=== PATIENT | male | born 1955 | race Caucasian/White ===

== ENCOUNTER 2017-04-18 11:34 | Inpatient (IN) | payer OTHER ==
[~2017-04-18] VITALS: Ht 185.4 cm; Wt 107.0 kg
--- NOTE | ~2017-04-18 | O ---
[facility] [place] [address] OPERATIVE REPORT Name: EMELINA ALBERTO Room #: 426-P ADM IN M.R.#: [id number] Admission: 04/18/17 Attend Phys: Haseeb Banks Discharge: Date of : 57 Report #: [id number] THIS REPORT FOR: //name// CC: FABI physician/PCP Haseeb Banks DATE OF SERVICE: 04/20/2017 PREOPERATIVE DIAGNOSIS: Bilateral quadriceps tendon tear. POSTOPERATIVE DIAGNOSIS: Bilateral quadriceps tendon tear. PROCEDURE: Bilateral quadriceps tendon repair. SURGEON: Shaun Gore MD ANESTHESIA: General. ESTIMATED BLOOD LOSS: 50 mL. DRAINS: No drains. TOURNIQUET TIME: No tourniquets. FRYER OPERATOR: SELWYN Veliz ANESTHESIA: General. DESCRIPTION OF PROCEDURE: The patient brought to the operating room where he was placed under general anesthesia. Once under adequate general anesthesia, bilateral lower extremities were prepped and draped in sterile manner. The left lower extremity was attended to first. A 14 cm incision overlying the patella, extending proximally over the quadriceps tendon tear was then made to dissect down through the soft tissue, the quadriceps tendon tear which the tendon itself was then identified and hematoma was evacuated and the tendon was then subsequently suture repaired utilizing #5 FiberWire suture and a 4 strand Krackow type stitch. The drill holes were then placed through the patella with 3.5 drill and 3 drill holes were placed. Two of the sutures were placed through the central and one each laterally. These were then transferred through and subsequently sutured down repairing the tendon back to the patella. Once complete, the wound was irrigated copiously and #1 Vicryl was utilized to repair the rent in the medial and lateral joint capsules. The wound was then irrigated copiously once again and closed with 2-0 Vicryl in subcutaneous tissues and devonte for the skin. We then proceeded to the right lower extremity. Similarly, a 14 cm incision over the right patella and quadriceps tendon was made. This was dissected down through the soft tissue to the tear and hematoma [address] [address] OPERATIVE REPORT Name: ALBERTOEMELINA ANTOINE Room #: 426-P ADM IN M.R.#: [id number] Admission: 04/18/17 Attend Phys: Haseeb Banks Discharge: Date of : 57 Report #: [id number] was evacuated. A 4 strand Krackow type stitch was then placed. Two strands then placed through a drill hole in the patella centrally and one strand each medially and laterally respectively. This was then suture repaired and brought down to the patella with the suture. Excellent repair was achieved. The wound was irrigated copiously. A #1 Vicryl was used to repair the joint capsule both medially and laterally. The wound was irrigated copiously and closed with 2-0 Vicryl in subcutaneous tissues and devonte were used for the skin. Wounds were dressed with Xeroform, 4 x 4s, and sterile soft compressive dressing was placed. Knee immobilizers were then placed. There were no complications from the procedure. The patient tolerated the procedure well and went to the recovery room without incident. <ELECTRONICALLY SIGNED> By: Shaun Gore MD 04/22/17 1217 1819 1835 Shaun Gore MD /nt
--- NOTE | ~2017-04-18 | EKG ---
[address] [place] [address] ELECTROCARDIOGRAM REPORT Name: EMELINA ALBERTO Room #: 170-15 ADM IN M.R.#: [id number] Admission: 04/18/17 Attend Phys: Haseeb Banks Discharge: Date of : 57 Report #: [id number] THIS REPORT FOR: //name// [facility] ED Test Date: 2017-04-18 Test Time: 13:44:17 Pat Name: EMELINA ALBERTO Department: Room: 170 Gender: M Emergency Management Consultant: Lisa MEJIA : 1955 Requested By: Stephanie Alas Order Number: [id number] MD: Yinka Michael Measurements Intervals [place] Rate: 89 P: 22 GA: 163 QRS: 44 QRSD: 92 T: 28 QT: 361 QTc: 440 Interpretive Statements Sinus rhythm No previous ECG available for comparison Electronically Signed On 04-18-2017 15:55:51 SENIOR ANDROID DEVELOPER by Yinka Michael [email or web address] <ELECTRONICALLY SIGNED> By: Yinka Michael MD 04/18/17 1555 1344 1344 MD ADITI Williamson
--- NOTE | ~2017-04-18 | HC ---
[facility] [place] [address] CONSULTATION Name: EMELINA ALBERTO Room #: 426-P [facility] IN M.R.#: [id number] Admission: 04/18/17 Attend Phys: Haseeb Banks Discharge: 04/23/17 Date of : 57 Report #: [id number] THIS REPORT FOR: //name// CC: FABI physician/PCP Haseeb Banks DATE OF SERVICE: 04/21/2017 HISTORY OF PRESENT ILLNESS: The patient is a 61-year-old male who slipped on the ice on his way to work and sustained bilateral lower extremity pain. He was noted to have bilateral quadriceps tendon rupture. He underwent repair of the bilateral quadriceps tendons on 04/20/2017. He is limited to nonweightbearing bilateral lower extremities and is to wear the knee immobilizers. We are seeing him in rehabilitation medicine consultation. PAST SURGICAL HISTORY: Includes spondylolisthesis at L5-S1. He has had an arthroscopic meniscus repair of the right knee and carpal tunnel of the right wrist. HABITS: Current every day smoker. No history of alcohol abuse. ALLERGIES: CODEINE and PENICILLIN. SOCIAL HISTORY: Lives in a house alone, split level front to back, 6 steps in and 6 to the bedroom. 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 He has a sister that is involved as well as a niece and nephew. REVIEW OF SYSTEMS: Did not offer any current complaints of chest pain, shortness of breath or abdominal discomfort. PHYSICAL EXAMINATION: GENERAL: A 61-year-old male in no obvious distress. Very pleasant gentleman. HEENT: Appeared to be benign. Facies are symmetric. EXTREMITIES: Functional range of motion of both upper extremities without obvious focal weakness. Lower extremities, no focal calf swelling. Both legs are wrapped post-surgery. He is able to dorsiflex, plantar flex both ankles. ASSESSMENT: A 61-year-old white male with the following problem list: 1. Bilateral quadriceps tendon tear, status post repair on 04/20/2017. Nonweightbearing with bilateral knee immobilizers. 2. Functional mobility and ADL deficits. 3. Prior history of spondylolisthesis L5-S1. PLAN: Therapies will be evaluating him. The goal will be to achieve independence at the wheelchair level likely utilizing a sliding board. Would [address] [address] CONSULTATION Name: EMELINA ALBERTO Room #: 426-P [facility] IN M.R.#: [id number] Admission: 04/18/17 Attend Phys: Haseeb Banks Discharge: 04/23/17 Date of : 57 Report #: [id number] anticipate that he would be a good acute in-hospital inpatient rehabilitation candidate. We will see how he does in therapies and be glad to follow along with you. <ELECTRONICALLY SIGNED> By: Shiraz Vines MD 04/30/17 1306 1136 1353 Shiraz Vines MD /MELISSA
[2017-04-18 11:35] VITALS: BP 119/71
[2017-04-18 12:24] LABS: ABSOLUTE NEUTROPHILS 13.6 thou/uL (1.4-8.2); EOSINOPHILS 0.6 % (0.0-3.0); HEMATOCRIT 46.1 % (42.0-52.0); HEMOGLOBIN 15.9 gm/dL (14.0-18.0); LYMPHOCYTES 5.2 % (24.0-44.0); MCH 32.1 pg (26.0-34.0); MCHC 34.5 g/dL (28.0-37.0); MONOCYTES 6.5 % (1.0-8.0); PLATELET COUNT 179 thou/uL (150-400); POLYS 86.7 % (36.0-66.0); RBC 4.96 mil/uL (4.50-6.00); WBC 15.7 thou/uL (4.0-11.0)
[2017-04-18 12:43] LABS: ANION GAP 10 mmol/L (7-16); BUN 26 mg/dL (7-18); CALCIUM 9.3 mg/dL (8.5-10.1); CHLORIDE 108 mmol/L (98-107); CO2 25 mmol/L (21-32); CREATININE 1.2 mg/dL (0.7-1.3); GLUCOSE 150 mg/dL (74-106); POTASSIUM 4.2 mmol/L (3.5-5.1); SODIUM 143 mmol/L (136-145)
[2017-04-18 12:51] LABS: TROPONIN-I < 0.04 ng/mL (<0.06)
[2017-04-18 15:56] LABS: URINE BILIRUBIN NEGATIVE (Negative); URINE BLOOD NEGATIVE (Negative); URINE CLARITY CLEAR; URINE COLOR YELLOW; URINE GLUCOSE-RANDOM* NEGATIVE (Negative); URINE KETONES NEGATIVE (Negative); URINE LEUKOCYTES NEGATIVE (Negative); URINE NITRITE NEGATIVE (Negative); URINE PROTEIN (DIPSTICK) NEGATIVE (Negative); URINE SPECIFIC GRAVITY >= 1.030 (1.005-1.035); URINE UROBILINOGEN 0.2 E.U./dl (0.2-1.0)
[2017-04-18 16:47] VITALS: BP 128/88
[2017-04-18 19:49] VITALS: BP 125/75
[2017-04-18 21:00] VITALS: BP 134/72
[2017-04-19 04:30] VITALS: BP 140/72
[2017-04-19 08:30] VITALS: BP 118/63
[2017-04-19 11:09] LABS: GLYCOHEMOGLOBIN (HGB A1C) 5.6 % (4.8-5.6)
[2017-04-19 15:40] VITALS: BP 120/69
[2017-04-19 20:12] VITALS: BP 118/62
[2017-04-20 04:09] VITALS: BP 112/76
[2017-04-20 07:15] VITALS: BP 116/84
[2017-04-21 04:37] VITALS: BP 101/62
[2017-04-21 06:42] LABS: HEMATOCRIT 39.6 % (42.0-52.0); HEMOGLOBIN 13.7 gm/dL (14.0-18.0)
[2017-04-21 06:50] LABS: POTASSIUM 4.5 mmol/L (3.5-5.1)
[2017-04-21 08:30] VITALS: BP 131/74
[2017-04-21 15:00] VITALS: BP 125/64
[2017-04-21 19:41] VITALS: BP 124/67
[2017-04-22 03:50] VITALS: BP 117/73
[2017-04-22 08:30] VITALS: BP 131/70
[2017-04-22 16:19] VITALS: BP 119/72
[2017-04-22 19:21] VITALS: BP 115/64
[2017-04-23 03:52] VITALS: BP 128/79
[2017-04-23 08:45] VITALS: BP 115/74
[2017-04-23] MEDS ORDERED: MIRALAX17 GM PO (14:32)
[2017-04-23] MEDS ORDERED: AMBIEN 5 MG TABL5 M1 PO (14:32)
[2017-04-23] MEDS ORDERED: PERCOCET PO (14:32)
[2017-04-23] MEDS ORDERED: ACETAMINOPHEN325 M1 PO (14:32)
[2017-04-23] MEDS ORDERED: CYCLOBENZAPRINE5 MG PO (14:32)
[2017-04-23] MEDS ORDERED: COLACE 100 MG100 MG PO (14:32)
[2017-04-23] MEDS ORDERED: ENOXAPARIN40 MG/0.1 SUBQ (14:32)
== END 2017-04-23 15:08 | DRG 501 ==
LOC: ER 11:34 → EROBS 14:42 → 4E 14:42
PROVIDERS: Emergency Medicine; Hospitalist; Nurse Practitioner Family; Orthopaedic Surgery Foot and Ankle Surgery
PROC: 0LQM0ZZ Repair Left Upper Leg Tendon, Open Approach (ICD-10-PCS; principal; 2017-04-20)
PROC: 0LQL0ZZ Repair Right Upper Leg Tendon, Open Approach (ICD-10-PCS; principal; 2017-04-20)
DX: S76.112A Strain of left quadriceps muscle, fascia and tendon, initial encounter (principal); D62 Acute posthemorrhagic anemia; Z60.2 Problems related to living alone; S76.111A Strain of right quadriceps muscle, fascia and tendon, initial encounter; F17.210 Nicotine dependence, cigarettes, uncomplicated; M43.16 Spondylolisthesis, lumbar region; R73.9 Hyperglycemia, unspecified; Z88.6 Allergy status to analgesic agent; Z88.0 Allergy status to penicillin; Z28.21 Immunization not carried out because of patient refusal
CPT/HCPCS: 10084; 50010; 50101; 50386; 50417; 51412; 56521; 56524; 56525; 56531; 62110; 62900; 70005

== ENCOUNTER 2017-04-23 10:22 | Inpatient (IN) | payer OTHER ==
[~2017-04-23] VITALS: Ht 185.4 cm; Wt 109.8 kg
--- NOTE | ~2017-04-23 | H ---
[facility] [place] [address] HISTORY AND PHYSICAL Name: EMELINA ALBERTO Room #: 511-P [facility] IN M.R.#: [id number] Admission: 04/23/17 Attend Phys: Shiraz Vines MD Discharge: 04/28/17 Date of : 57 Report #: [id number] THIS REPORT FOR: //name// CC: Shiraz Vines FAM physician/PCP DATE OF SERVICE: 04/23/2017 This is a history and physical note I am covering for Dr. Shiraz Vines and therefore completing this history and physical for him. CHIEF COMPLAINT: Weakness. HISTORY OF PRESENT ILLNESS: This is a very pleasant 61-year-old right-hand dominant male who slipped on ice at work and sustained bilateral lower extremity pain. He was found to have bilateral quadriceps tendon rupture. He underwent repair of bilateral quadriceps tendons on 04/20/2017. He is limited to nonweightbearing of bilateral lower extremities and is to wear knee immobilizers. He was seen in consultation by Dr. Shiraz Vines on 04/21/2017 and found to be a good rehabilitation candidate. He was approved by his worker's compensation carrier for inpatient rehabilitation and is now being admitted to the rehabilitation program for comprehensive therapies. PAST MEDICAL AND SURGICAL HISTORY: As above. Also note a spondylolisthesis at L5-S1. He has had an arthroscopic meniscus repair of the right knee and carpal tunnel repair of the right wrist. HABITS: He is a current everyday smoker. He does not have any history of alcohol abuse. ALLERGIES: CODEINE AND PENICILLIN. SOCIAL HISTORY: He lives independently in his own home. It is a split level home with 6 steps into the house and 6 steps to the bedroom. FUNCTIONAL HISTORY: He ambulated independently and drove. 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 MEDICATIONS: Reviewed. I note that he is receiving cyclobenzaprine for muscle spasms and Lovenox for DVT prophylaxis. REVIEW OF SYSTEMS: As above. Specifically, he denies chest pain, shortness of breath, fevers and chills. He denies uncontrolled pain. Denies numbness or tingling of his lower extremities. Otherwise, remainder of a 14-point review is [facility] [address] [place] [address] HISTORY AND PHYSICAL Name: EMELINA ALBERTO Room #: 511-P [facility] IN .R.#: [id number] Admission: 04/23/17 Attend Phys: Shiraz Vines MD Discharge: 04/28/17 Date of : 57 Report #: [id number] negative except for what was stated above. PHYSICAL EXAMINATION GENERAL: No acute distress, well-developed, well-nourished, afebrile. CARDIOVASCULAR: Pulses are 2+ and regular. LUNGS: He is aerating well. ABDOMEN: Soft, nontender, nondistended, positive bowel sounds. EXTREMITIES: Calves are nontender. LYMPHATICS: No cervical adenopathy. MUSCULOSKELETAL: Functionally, he was able to sit up in the wheelchair without difficulty. He can dorsiflex and plantarflex both of his ankles without difficulty and shows 5/5 strength in his lower extremities. He has 5/5 strength in his upper extremities. His tone was within normal limits. There is no muscle atrophy. NEUROLOGIC AND PSYCHIATRIC: Coordination is fair. Muscle stretch reflexes are 1/4 and symmetric. Sensation intact. Alert and oriented, pleasant, cooperative to the exam. There is no wet or gurgling quality to his voice. No dysarthria or aphasia. IMPRESSION: Mobility and self-care deficits in a 61-year-old right-hand dominant male secondary to #1. 1. Bilateral quadriceps tear, status post repair on 04/20/2017 with nonweightbearing status and the use of bilateral knee immobilizers. 2. Functional mobility and ADL deficits due to above. 3. History of L5-S1 spondylolisthesis. 4. Tobacco abuse. PLAN: 1. Admit to the rehabilitation unit for comprehensive therapies. 2. Please see the plan of care, post-admission physician evaluation and admission orders for full details of the patient's rehabilitation care plan. 3. Dr. Vines will return to the office on Wednesday, and will assume care at that time. 4. Discussed the rehabilitation care plan in detail with his therapy team. 5. DVT prophylaxis. 6. Pain control. 7. Bowel and bladder management. 8. Ensure proper fit of knee immobilizers and provide skin protection. 9. Fall precautions. 10. Estimated length of stay is 10-14 days with the goal of him returning to his previous level of independence. This will depend on when weightbearing can be granted. Orthopedic opinion will be needed to determine when weightbearing can be increased. POST-ADMISSION PHYSICIAN EVALUATION: A post-admission physician evaluation has been completed. The patient's preadmission screening was reviewed in its [facility] [address] [place] [address] HISTORY AND PHYSICAL Name: EMELINA ALBERTO Room #: 511-P DIS IN M.R.#: [id number] Admission: 04/23/17 Attend Phys: Shiraz Vines MD Discharge: 04/28/17 Date of : 57 Report #: [id number] entirety by this examiner. The current clinical status is supported by the information contained within. The patient is an appropriate candidate to undergo comprehensive inpatient rehabilitation consisting of PT and OT 3 hours a day at least 5 days a week. Furthermore, nothing has changed since the preadmission screen was completed to suggest that the patient would not be able to tolerate or benefit from the rehabilitation program. It is my opinion that inpatient rehabilitation rather than intermediate is more appropriate for him due to his multiple medical needs, requiring comprehensive followup care. He is at risk of clinical complications during participation in rehabilitation due to the following adverse medical conditions of tobacco use and nonweightbearing status of his lower extremities. My plan to manage these conditions, which could impact participation in rehabilitation is to consult internal medicine and orthopedics. They will follow closely during his rehabilitation course. INDIVIDUALIZED OVERALL PLAN OF CARE: Summarization of findings: The patient is receiving an inpatient rehabilitation program due to the following functional impairments: 1. Nonweightbearing of bilateral lower extremities. 2. Bilateral quadriceps rupture and repair. 3. L5-S1 spondylolisthesis. Identified interventions include physical therapy and occupational therapy to address his mobility and self-care deficits. Physical medicine and rehabilitation will provide management of his rehabilitation care plan. Internal medicine will follow him for his multiple medical issues and rehabilitation nursing care will provide 24-hour a day care needs. director of special services will be available for discharge planning and medical equipment needs, dietitian consultation for nutritional purposes as well. ESTIMATED LENGTH OF STAY: Approximately 10-14 days, which is in agreement with the preadmission screen. ANTICIPATED FUNCTIONAL OUTCOME: Modified independent with mobility and self-care skills, this is a realistic goal based on his previous level of function and progress thus far in therapies. ANTICIPATED DISCHARGE DESTINATION: Home with assistance. He will likely need home health services at that time. Medical prognosis is good. He will continue to receive internal medicine followup. ANTICIPATED THERAPIES: Physical therapy, occupational therapy and [facility] [address] [place] [address] HISTORY AND PHYSICAL Name: EMELINA ALBERTO Room #: 511-P DIS IN M.R.#: [id number] Admission: 04/23/17 Attend Phys: Shiraz Vines MD Discharge: 04/28/17 Date of : 57 Report #: [id number] rehabilitation nursing care. He will have physical therapy and occupational therapy at least 3 hours a day 5 days a week for an anticipated duration of 14 days. SUMMARIZATION AND TREATMENT PLAN: He will continue to receive an inpatient rehabilitation program as outlined above in an effort to improve his overall functions so that he can return to home at a modified independent level within 10-14 days. <ELECTRONICALLY SIGNED> By: Shiraz Vines MD 04/30/17 1020 1751 1830 Jono Raphael DO /nt
[2017-04-23] MEDS ORDERED: ACETAMINOPHEN325 M1 PO (14:32)
[2017-04-23] MEDS ORDERED: CYCLOBENZAPRINE5 MG PO (14:32)
[2017-04-23] MEDS ORDERED: COLACE 100 MG100 MG PO (14:32)
[2017-04-23] MEDS ORDERED: PERCOCET PO (14:32)
[2017-04-23] MEDS ORDERED: AMBIEN 5 MG TABL5 M1 PO (14:32)
[2017-04-23] MEDS ORDERED: ENOXAPARIN40 MG/0.1 SUBQ (14:32)
[2017-04-23] MEDS ORDERED: MIRALAX17 GM PO (14:32)
[2017-04-23 15:38] VITALS: BP 121/72
[2017-04-23 15:55] VITALS: BP 121/72
[2017-04-23 21:06] VITALS: BP 118/66
[2017-04-24 08:30] VITALS: BP 120/71
[2017-04-24 20:12] VITALS: BP 115/63
[2017-04-25 20:05] VITALS: BP 115/72
[2017-04-26 06:09] LABS: HEMATOCRIT 42.6 % (42.0-52.0); HEMOGLOBIN 14.8 gm/dL (14.0-18.0); MCH 32.4 pg (26.0-34.0); MCHC 34.7 g/dL (28.0-37.0); MCV 93.3 fL (80.0-100.0); PLATELET COUNT 255 thou/uL (150-400); RBC 4.57 mil/uL (4.50-6.00); RDW 12.6 % (10.5-14.5); WBC 9.7 thou/uL (4.0-11.0)
[2017-04-26 06:19] LABS: CREATININE 0.9 mg/dL (0.7-1.3); POTASSIUM 4.2 mmol/L (3.5-5.1)
[2017-04-26 08:43] VITALS: BP 140/68
[2017-04-26 09:26] LABS: ATYPICAL LYMPHS 1 %
[2017-04-26 20:02] VITALS: BP 115/73
[2017-04-27 08:30] VITALS: BP 125/74
[2017-04-27 20:03] VITALS: BP 143/63
[2017-04-28 08:00] VITALS: BP 106/78
[2017-04-28] MEDS ORDERED: PERCOCET PO (08:23)
== END 2017-04-28 15:12 | disposition home or self-care (01) | DRG 538 ==
PROVIDERS: Family Medicine
DX: S76.111A Strain of right quadriceps muscle, fascia and tendon, initial encounter (principal); S76.112A Strain of left quadriceps muscle, fascia and tendon, initial encounter; M43.17 Spondylolisthesis, lumbosacral region; F17.210 Nicotine dependence, cigarettes, uncomplicated; K59.00 Constipation, unspecified; L30.9 Dermatitis, unspecified; R53.1 Weakness; Z88.6 Allergy status to analgesic agent; Z88.0 Allergy status to penicillin; W00.0XXA Fall on same level due to ice and snow, initial encounter; Y93.29 Activity, other involving ice and snow; Y92.89 Other specified places as the place of occurrence of the external cause; Y99.8 Other external cause status
CPT/HCPCS: 10112

== ENCOUNTER → 2021-04-02 | Outpatient (CLI) | payer OTHER ==
[~2021-04-02] MED LIST: ACETAMINOPHEN325 M1 PO; AMBIEN 5 MG TABL5 M1 PO; COLACE 100 MG100 MG PO; CYCLOBENZAPRINE5 MG PO; ENOXAPARIN40 MG/0.1 SUBQ; MIRALAX17 GM PO; PERCOCET PO
[2021-04-02 12:14] LABS: CREATININE 1.1 mg/dL (0.7-1.3)
== END ==
LOC: CAT 03-27 11:59 → LAB 10:48 → CAT 10:48
PROVIDERS: ATTEND Family Medicine
DX: R22.1 Localized swelling, mass and lump, neck (principal); K11.20 Sialoadenitis, unspecified